=== PATIENT | female | born 1995 | race African-American/Black ===

== ENCOUNTER 2024-10-24 13:55 | Emergency (ER) | payer MEDICARE, MEDICAID ==
[~2024-10-24] VITALS: Ht 172.7 cm; Wt 109.0 kg
[2024-10-24 14:00] VITALS: O2SAT 100
[2024-10-24 14:41] LABS: BASOPHILS % 0.6 % (0.0-2.0); HEMATOCRIT. 35.3 % (36.0-48.0); HEMOGLOBIN. 11.4 g/dL (12.0-16.0); LYMPHOCYTES % 19.4 % (20.0-50.0); MEAN CORPUSCULAR HGB CONC 32.2 g/dL (31.0-37.0); MEAN CORPUSCULAR VOLUME 80.9 fL (81.0-99.0); MEAN PLATELET VOLUME 8.5 fl (7.4-10.4); MONOCYTES % 7.8 % (2.0-8.0); NEUTROPHILS % 71.2 % (40.0-76.0); PLATELET 292 x1000/uL (130-400); RED BLOOD CELL COUNT 4.36 mill/uL (4.2-5.4); RED CELL DISTRIBUTION WIDTH 15.1 % (11.6-14.6)
[2024-10-24 14:41] LABS: CLARITY URINE CLEAR (CLEAR); COLOR URINE YELLOW (YELLOW); GLUCOSE URINE NEGATIVE (NEGATIVE); KETONES URINE TRACE (NEGATIVE); LEUKOCYTE ESTERASE URINE 1+ (NEGATIVE); NITRITE URINE NEGATIVE (NEGATIVE); OCCULT BLOOD URINE 3+ (NEGATIVE); PROTEIN URINE TRACE (NEGATIVE); SPECIFIC GRAVITY URINE 1.034 (1.005-1.030)
[2024-10-24 14:49] LABS: CHLORIDE 107 mEq/L (98-107); POTASSIUM 3.5 mEq/L (3.5-5.1)
[2024-10-24 14:50] LABS: CARBON DIOXIDE 26 mEq/L (21-32); SODIUM 140 mEq/L (136-145)
[2024-10-24 14:51] LABS: CALCIUM 8.9 mg/dL (8.7-10.4)
[2024-10-24 14:53] LABS: *AMPHETAMINES SCREEN URINE NEGATIVE (NEGATIVE); *BARBITURATES SCREEN URINE NEGATIVE (NEGATIVE); *BENZODIAZEPINES SCREEN URINE NEGATIVE (NEGATIVE); *COCAINE SCREEN URINE NEGATIVE (NEGATIVE); CANNABINOID URINE SCREEN NEGATIVE (NEGATIVE); ECSTASY MDMA SCREEN URINE NEGATIVE (NEGATIVE); METHADONE URINE SCREEN NEGATIVE (NEGATIVE); OPIATES URINE SCREEN NEGATIVE (NEGATIVE); PHENCYCLIDINE URINE SCREEN NEGATIVE (NEGATIVE)
[2024-10-24 14:55] LABS: CREATININE 0.6 mg/dL (0.6-1.0); GLUCOSE 100 mg/dL (70-105)
[2024-10-24 14:56] LABS: ETHANOL BLOOD < 10 mg/dL (<10); UREA NITROGEN BLOOD 14 mg/dL (9-23)
[2024-10-24 14:56] LABS: RBC URINE 50-100 /hpf (0-2); SQUAMOUS EPITHELIAL CELL URINE 1+ /lpf (RARE/1+)
[2024-10-24 14:57] LABS: BACTERIA URINE TRACE
[2024-10-24 14:57] LABS: ACETAMINOPHEN < 2 ug/mL (10-30)
[2024-10-24 14:58] LABS: MUCUS URINE TRACE /lpf (< = 2+)
[2024-10-24 22:05] LABS: HCG SCREEN NEGATIVE
[2024-10-25] MEDS: DIPHENHYDRAMINE 25MG CAPSULE PO STA (21:54)
[2024-10-26 12:02] VITALS: TEMP 37
[2024-10-26 13:29] VITALS: BP 111/70; PULSE 76; RESP 16; O2SAT 100
[2024-10-26] MEDS ORDERED: RISPERIDONE 0.5MG TABLET PO SCH (21:00)
== END 2024-10-26 13:53 | disposition hospice, inpatient (51) ==
LOC: ER 14:15
DX: R45.851 Suicidal ideations (principal); F25.9 Schizoaffective disorder, unspecified; F32.A Depression, unspecified; Z91.148 Patient's other noncompliance with medication regimen for other reason; Z79.899 Other long term (current) drug therapy; Z20.822 Contact with and (suspected) exposure to COVID-19
CPT/HCPCS: 80305; 80048; 81003; 81025; 80307; 80329; 80320; 84703; 85025; 87086; 36415; 99285; 87426; Q0163; G0480